=== PATIENT | female | born 1965 | race Caucasian/White ===

== ENCOUNTER 2021-03-12 17:12 | Inpatient (IN) ==
[2021-03-12 21:56] LABS: Basophils # (auto) 0.02 K/uL (0-0.2); Basophils % (auto) 0.1 %; Eosinophils # (auto) 0.03 K/uL (0-0.5); Eosinophils % (auto) 0.2 %; Hemoglobin 13.8 g/dL (12.0-16.0); Immature Granulocytes # (auto) 0.03 K/uL (0.00-0.02); Immature Granulocytes % (auto) 0.2 %; Lymphocytes # (auto) 1.77 K/uL (1.2-3.4); Lymphocytes % (auto) 13.2 %; Mean Corpuscular Hemoglobin 30.8 pg (25-34); Mean Corpuscular Hgb Conc 34.5 g/dL (32-36); Mean Corpuscular Volume 89.3 fL (80-100); Mean Platelet Volume 10.1 fL (7.4-10.4); Monocytes % (auto) 8.2 %; Neutrophils # (auto) 10.44 K/uL (1.4-6.5); Neutrophils % (auto) 78.1 %; Platelet Count 228 K/uL (130-400); RDW Standard Deviation 42.7 fL (36.4-46.3); Red Blood Count 4.48 M/uL (4.2-5.4); White Blood Count 13.39 K/uL (4.8-10.8)
[2021-03-12 22:12] LABS: Alanine Aminotransferase 21 U/L (12-78); Albumin Level 3.4 gm/dl (3.4-5.0); Aspartate Aminotransferase 15 U/L (15-37); BUN Creatinine Ratio 13.4 (10-20); Blood Urea Nitrogen 10 mg/dl (7-18); Calcium 9.5 mg/dl (8.5-10.1); Carbon Dioxide 26 mmol/L (21-32); Chloride 101 mmol/L (98-107); Creatinine Clr Calc Pharmacy 76.5 ml/min; Est GFR (African American) 100.9 ml/min; Est GFR (Non-African American) 87.1 ml/min; Glucose 100 mg/dl (70-99); Magnesium 2.2 mg/dl (1.8-2.4); Sodium 136 mmol/L (136-145)
[2021-03-12 22:16] LABS: Albumin Globulin Ratio 0.8 (0.9-2); Alkaline Phosphatase 59 U/L (45-117); Bilirubin,Total 0.8 mg/dl (0.2-1); Globulin 4.4 gm/dl (2.5-4.0); Total Protein 7.8 gm/dl (6.4-8.2); Troponin I < 0.015 ng/ml (0-0.045)
[2021-03-12 23:00] LABS: INR 1.1 (0.9-1.1); Partial Thromboplastin Ratio 1.2; Partial Thromboplastin Time 31.8 Seconds (21.0-31.0)
--- NOTE | 2021-03-12 23:04 | Emergency Department Note ---
History of Present Illness General Chief complaint: Foot Injury/Pain Stated complaint: CELLULITIS IN R FOOT, FEVER History of Present Illness Maximum Pain Intensity: 10 Sonali Singh is a 55 year old female with history of colon surgery and hernia repair who presents to the ED for evaluation of worsening pain, redness and swelling to her right great toe radiating into her mid foot over the past 3 days. Currently, she rates her discomfort as a 10/10 which worsens to palpation of the area. She has not yet attempted to take medications for her symptoms today. The patient states that she has a history of "toe fungus" for about a year and has experienced several episodes of swelling and discharge around her right great toe which she states she has treated on her own in the past after making a small incision around the area of her toenail to express the purulent fluid and taking natural medications. At the time of onset 3 days ago, the patient states that she did attempt to incise a small area around her right great toenail, however she was unable to express a significant amount of fluid and she did not experience relief of her symptoms as she had in the past. Since then, her pain has become worse and she has since developed redness and swelling tracking down to her mid foot. She also notes clear/yellow drainage around her toenail. She has attempted to take vitamin C without relief. Due to her ongoing symptoms, she presented to Urgent Care today but was then referred to the ED for further evaluation as there were concerns for cellulitis. The patient has not been taking her temperature at home but states that she was told that she had a fever at Urgent care. She does note that she had a "cold" last week but her symptoms have since resolved and she denies continued symptoms of congestion, cough, shortness of breath, chest pain, abdominal pain, nausea, vomiting or u rinary symptoms. She did note several episodes of diarrhea but believes that was from taking vitamin C. She denies additional complaints other than that of her right great toe/foot. Home Medications Medication Instructions Recorded Confirmed Type No Known Home Medications 03/13/21 03/13/21 History Allergies Allergy/AdvReac Type Severity Reaction Status Date / Time No Known Allergies Allergy Verified 03/13/21 01:03 Past Med/Surg History Medical History No significant past medical history Surgical History History of section History of colon surgery History of hernia repair Social History Smoking Status: Never smoker Hx Alcohol Use: No Hx Substance Use: No Feels Safe at Home: Yes Review of Systems A total of 10 systems reviewed and were otherwise negative Physical Exam Vital Signs Vital Signs - 24 hr 03/12/21 17:25 03/12/21 23:32 03/12/21 23:58 Temperature 36.9 C 37 C Temperature Source Temporal Artery Scan Oral Pulse Rate 81 86 Pulse Rate [Finger] 86 Respiratory Rate 19 Respiratory Effort / Characteristics Non-Labored Spontaneous Respiratory Depth Normal Blood Pressure 149/97 H Blood Pressure [Right Arm] 150/85 H Blood Pressure Mean 114 Blood Pressure Mean [Right Arm] 106 Blood Pressure Position [Right Arm] Sitting Pulse Oximetry 97 96 Oxygen Delivery Method Room Air Room Air Sepsis Recent Fever Within 48 Hours No Sepsis New/Unexplained Change in Mental Status N/A Sepsis Action Taken by Nursing No Action Required General: The patient is resting in bed, appears very uncomfortable due to right great toe/foot pain HEENT: Normocephalic, atraumatic, PERRL, EOMI, mucous membranes moist, oropharynx clear Neck: Trachea midline, no meningismus, no mid-line cervical tenderness Resp: Good inspiratory effort on room air, lung sounds clear bilaterally CV: Regular rate and rhythm, peripheral pulses palpated Abd: Soft, non-distended, non-tender Integumentary/MSK: With attention to the RLE, toenails 1-5 are yellow/blackened, thick and crumbling. There is significant erythema and edema to the right great toe tracking down to the right midfoot. Warm and extremely tender to palpation. No current drainage. ROM of the great toes is limited secondary to pain but able to move other toes. D/p pulse palpable, sensation intact. Moving ankle without apparent pain or difficulty. No additional wounds appreciated. Neuro: Awake, alert and oriented x 3, interacting and answering questions appropriately Course Administered Medications Discontinued Medications Vancomycin HCl 1,250 mg/ (Sodium Chloride) 525 mls @ 200 mls/hr IV NOW ONE Stop: 03/13/21 02:03 Last Admin: 03/13/21 01:21 Dose: 200 mls/hr Documented by: [id number] Piperacillin Sod/Tazobactam Sod (Zosyn) 4.5 gm in 120 mls @ 240 mls/hr IV NOW ONE Stop: 03/13/21 00:01 Last Infusion: 03/13/21 01:21 Dose: 0 mls/hr Documented by: [id number] Admin: 03/12/21 23:53 Dose: 240 mls/hr Documented by: [id number] Ibuprofen (Ibuprofen 600 Mg Tab) 600 mg PO NOW STA Stop: 03/12/21 23:20 Last Admin: 03/12/21 23:53 Dose: 600 mg Documented by: [id number] Medical Decision Making Differential Diagnosis Etiologies such as cellulitis, abscess, osteomyelitis, MRSA infection, DVT, necrotizing fasciitis, dermatitis, fracture, dislocation as well as others were entertained. Laboratory Data Result diagrams: 03/12/21 21:25 03/12/21 21:25 Lab Results 03/12/21 03/12/21 03/12/21 Range/Units 21:25 21:25 21:25 WBC 13.39 H (4.8-10.8) K/uL RBC 4.48 (4.2-5.4) M/uL Hgb 13.8 (12.0-16.0) g/dL Hct 40.0 (37-47) % MCV 89.3 (80-100) fL MCH 30.8 (25-34) pg MCHC 34.5 (32-36) g/dL RDW Std Deviation 42.7 (36.4-46.3) fL RDW Coeff of Homar 13.0 (11.5-14.5) % Plt Count 228 (130-400) K/uL MPV 10.1 (7.4-10.4) fL Immature Gran % (Auto) 0.2 % Neut % (Auto) 78.1 % Lymph % (Auto) 13.2 % [place] % (Auto) 8.2 % Eos % (Auto) 0.2 % Baso % (Auto) 0.1 % Neut # (Auto) 10.44 H (1.4-6.5) K/uL Lymph # (Auto) 1.77 (1.2-3.4) K/uL [place] # (Auto) 1.10 H (0.11-0.59) K/uL Eos # (Auto) 0.03 (0-0.5) K/uL Baso # (Auto) 0.02 (0-0.2) K/uL Immature Gran # (Auto) 0.03 H (0.00-0.02) K/uL ESR (0-30) mm/hr PT 11.0 (9.0-12.0) Seconds INR 1.1 (0.9-1.1) APTT 31.8 H (21.0-31.0) Seconds PTT Ratio 1.2 Sodium 136 (136-145) mmol/L Potassium 4.0 (3.5-5.1) mmol/L Chloride 101 (98-107) mmol/L Carbon Dioxide 26 (21-32) mmol/L Anion Gap 9.0 (3-11) BUN 10 (7-18) mg/dl Creatinine 0.76 (0.6-1.2) mg/dl Est Cr Clr Drug Dosing 76.5 ml/min Est GFR ( Amer) 100.9 ml/min Est GFR (Non-Af Amer) 87.1 ml/min BUN/Creatinine Ratio 13.4 (10-20) Glucose 100 H (70-99) mg/dl Lactate (0.4-2.0) mmol/L Calcium 9.5 (8.5-10.1) mg/dl Magnesium 2.2 (1.8-2.4) mg/dl Total Bilirubin 0.8 (0.2-1) mg/dl AST 15 (15-37) U/L ALT 21 (12-78) U/L Alkaline Phosphatase 59 (45-117) U/L Troponin I < 0.015 (0-0.045) ng/ml C-Reactive Protein 14.40 H (0-0.29) mg/dl Total Protein 7.8 (6.4-8.2) gm/dl Albumin 3.4 (3.4-5.0) gm/dl Globulin 4.4 H (2.5-4.0) gm/dl Albumin/Globulin Ratio 0.8 L (0.9-2) Urine Color Urine Appearance (Clear) Urine pH (4.5-7.5) Ur Specific [place] (1.000-1.030) Urine Protein (Negative) Urine Glucose (UA) (Negative) Urine Ketones (Negative) Urine Blood (Negative) Urine Nitrite (Negative) Urine Bilirubin (Negative) Urine Urobilinogen (Negative) Ur Leukocyte Esterase (Negative) Urine WBC (Auto) (0-5) /hpf Urine RBC (Auto) (0-4) /hpf U Hyaline Cast (Auto) (0-5) /lpf U Epithel Cells (Auto) (0-5) /lpf Urine Bacteria (Auto) (Negative) COVID-19 Eval Order SARS-CoV-2 (PCR) (Negative) 03/12/21 03/12/21 03/13/21 Range/Units 21:25 23:42 Unknown WBC (4.8-10.8) K/uL RBC (4.2-5.4) M/uL Hgb (12.0-16.0) g/dL Hct (37-47) % MCV (80-100) fL MCH (25-34) pg MCHC (32-36) g/dL RDW Std Deviation (36.4-46.3) fL RDW Coeff of Homar (11.5-14.5) % Plt Count (130-400) K/uL MPV (7.4-10.4) fL Immature Gran % (Auto) % Neut % (Auto) % Lymph % (Auto) % [place] % (Auto) % Eos % (Auto) % Baso % (Auto) % Neut # (Auto) (1.4-6.5) K/uL Lymph # (Auto) (1.2-3.4) K/uL [place] # (Auto) (0.11-0.59) K/uL Eos # (Auto) (0-0.5) K/uL Baso # (Auto) (0-0.2) K/uL Immature Gran # (Auto) (0.00-0.02) K/uL ESR 60 H (0-30) mm/hr PT (9.0-12.0) Seconds INR (0.9-1.1) APTT (21.0-31.0) Seconds PTT Ratio Sodium (136-145) mmol/L Potassium (3.5-5.1) mmol/L Chloride (98-107) mmol/L Carbon Dioxide (21-32) mmol/L Anion Gap (3-11) BUN (7-18) mg/dl Creatinine (0.6-1.2) mg/dl Est Cr Clr Drug Dosing ml/min Est GFR ( Amer) ml/min Est GFR (Non-Af Amer) ml/min BUN/Creatinine Ratio (10-20) Glucose (70-99) mg/dl Lactate 0.9 (0.4-2.0) mmol/L Calcium (8.5-10.1) mg/dl Magnesium (1.8-2.4) mg/dl Total Bilirubin (0.2-1) mg/dl AST (15-37) U/L ALT (12-78) U/L Alkaline Phosphatase (45-117) U/L Troponin I (0-0.045) ng/ml C-Reactive Protein (0-0.29) mg/dl Total Protein (6.4-8.2) gm/dl Albumin (3.4-5.0) gm/dl Globulin (2.5-4.0) gm/dl Albumin/Globulin Ratio (0.9-2) Urine Color Urine Appearance (Clear) Urine pH (4.5-7.5) Ur Specific [place] (1.000-1.030) Urine Protein (Negative) Urine Glucose (UA) (Negative) Urine Ketones (Negative) Urine Blood (Negative) Urine Nitrite (Negative) Urine Bilirubin (Negative) Urine Urobilinogen (Negative) Ur Leukocyte Esterase (Negative) Urine WBC (Auto) (0-5) /hpf Urine RBC (Auto) (0-4) /hpf U Hyaline Cast (Auto) (0-5) /lpf U Epithel Cells (Auto) (0-5) /lpf Urine Bacteria (Auto) (Negative) COVID-19 Eval Order Covid19 at [facility] SARS-CoV-2 (PCR) (Negative) 03/13/21 03/13/21 Range/Units Unknown Unknown WBC (4.8-10.8) K/uL RBC (4.2-5.4) M/uL Hgb (12.0-16.0) g/dL Hct (37-47) % MCV (80-100) fL MCH (25-34) pg MCHC (32-36) g/dL RDW Std Deviation (36.4-46.3) fL RDW Coeff of Homar (11.5-14.5) % Plt Count (130-400) K/uL MPV (7.4-10.4) fL Immature Gran % (Auto) % Neut % (Auto) % Lymph % (Auto) % [place] % (Auto) % Eos % (Auto) % Baso % (Auto) % Neut # (Auto) (1.4-6.5) K/uL Lymph # (Auto) (1.2-3.4) K/uL [place] # (Auto) (0.11-0.59) K/uL Eos # (Auto) (0-0.5) K/uL Baso # (Auto) (0-0.2) K/uL Immature Gran # (Auto) (0.00-0.02) K/uL ESR (0-30) mm/hr PT (9.0-12.0) Seconds INR (0.9-1.1) APTT (21.0-31.0) Seconds PTT Ratio Sodium (136-145) mmol/L Potassium (3.5-5.1) mmol/L Chloride (98-107) mmol/L Carbon Dioxide (21-32) mmol/L Anion Gap (3-11) BUN (7-18) mg/dl Creatinine (0.6-1.2) mg/dl Est Cr Clr Drug Dosing ml/min Est GFR ( Amer) ml/min Est GFR (Non-Af Amer) ml/min BUN/Creatinine Ratio (10-20) Glucose (70-99) mg/dl Lactate (0.4-2.0) mmol/L Calcium (8.5-10.1) mg/dl Magnesium (1.8-2.4) mg/dl Total Bilirubin (0.2-1) mg/dl AST (15-37) U/L ALT (12-78) U/L Alkaline Phosphatase (45-117) U/L Troponin I (0-0.045) ng/ml C-Reactive Protein (0-0.29) mg/dl Total Protein (6.4-8.2) gm/dl Albumin (3.4-5.0) gm/dl Globulin (2.5-4.0) gm/dl Albumin/Globulin Ratio (0.9-2) Urine Color Yellow Urine Appearance Clear (Clear) Urine pH 5.0 (4.5-7.5) Ur Specific [place] 1.009 (1.000-1.030) Urine Protein Negative (Negative) Urine Glucose (UA) Negative (Negative) Urine Ketones 2+ H (Negative) Urine Blood 2+ H (Negative) Urine Nitrite Negative (Negative) Urine Bilirubin Negative (Negative) Urine Urobilinogen Negative (Negative) Ur Leukocyte Esterase 2+ H (Negative) Urine WBC (Auto) 10-30 H (0-5) /hpf Urine RBC (Auto) 0-4 (0-4) /hpf U Hyaline Cast (Auto) 0 (0-5) /lpf U Epithel Cells (Auto) 20-30 H (0-5) /lpf Urine Bacteria (Auto) Negative (Negative) COVID-19 Eval Order SARS-CoV-2 (PCR) NEGATIVE (Negative) Imaging Data My Impression: Per my view, right foot x-ray is without apparent acute fracture or dislocation. There does appear to be soft tissue swelling around the great toe. No obvious signs of osteomyelitis. Radiologist's Impression: Final Radiologist Impression of the right foot is pending. MDM Narrative Physical exam and history were performed. Nursing notes, EMR, and medication list were personally reviewed. Patient presented to the emergency department for evaluation of worsening pain, redness and swelling to her right great toe radiating down to her midfoot over the past 3 days. She did attempt to incise a small area around her great toenail but was unsuccessful in draining a significant amount of fluid. Since then her pain has continued to worsen despite attempts of taking vitamin C at home. Due to her ongoing symptoms she visited urgent care today but was then referred to the emergency department for further evaluation as there were concerns for cellulitis. The patient had not been taking her temperature at home, however she was told that she had a fever while urgent care today. Upon arrival she was afebrile with a temperature of 36.9C. She did note having a recent cold but denied continued symptoms of congestion, cough, shortness of breath, abdominal pain, nausea, vomiting or urinary symptoms. She did note diarrhea but thought this may have been from taking vitamin C. On exam, with attention to the RLE, toenails 1-5 were yellow/blackened, thick and crumbling. There was significant erythema and edema to the right great toe tracking down to the right midfoot. Warm and extremely tender to palpation. No apparent drainage. ROM of the great toes was limited secondary to pain but able to move other toes. D/p pulse palpable, sensation intact. Able to move ankle without apparent pain or difficulty. No additional wounds appreciated. Using shared medical decision making, the patient agreed to obtain x-rays to assess for acute bony abnormality. She also agreed for lab testing to assess for acute infectious process including CBC, CMP, lactate, CRP and ESR. The patient was offered pain medication and opted for a dose of ibuprofen, which she was given. IV access was established, labs were obtained and reviewed by myself as above. Of note, she did have leukocytosis with a white blood cell count of 13.39 with elevated neutrophils and monocytes. She also had an ESR of 60 and a CRP of 14.4 which are also indicative of inflammation and supportive of infectious process. X-ray of the right foot was obtained and reviewed by myself and my attending as above. There did not appear to be any acute fracture, dislocation or bony abnormality indicative of osteomyelitis. Final radiologist review is pending and will be reviewed in the morning. I discussed the results of the above lab findings and my interpretation of the x-rays with Dr. Renae and the patient at bedside. We discussed that these findings are consistent with acute cellulitis, and she would benefit from IV antibiotics for treatment of the infection to which she agreed. Vancomycin and Zosyn were ordered for coverage at this time. The patient was questioning if her toenail should be removed, however I do believe that she would benefit from treatment with antibiotics before any procedure should be done on her toenail to prevent the infection from becoming worse. The patient's case was discussed with Dr. Shi of the [facility]. She agreed to evaluate the patient. The patient verbalized her understanding and agreement with the treatment plan as above.. The chart was completed utilizing [employer] Speech Voice Recognition Software. Grammatical errors, random word insertions, pronoun errors, and incomplete sentences are an occasional consequence of this system due to software limitations, ambient noise, and hardware issues. Any formal questions or concerns about the content, text, or information contained within the body of this dictation should be directly addressed to the provider for clarification. Impression & Plan Cellulitis of great toe, right, Cellulitis of foot, right, Toenail fungus Discharge Plan Visit Data Chief Complaint: Foot Injury/Pain Stated Complaint: CELLULITIS IN R FOOT, FEVER ED Provider: Jakub Renae ED Midlevel Provider: Radha Dalton Discharge Problem: Cellulitis of great toe, right, Cellulitis of foot, right, Toenail fungus Forms Stand Alone Forms: [facility] [employer] Prescriptions Prescriptions: No Action No Known Home Medications RF: 0 Referrals Referrals: PCP,NO [Physician] -
[2021-03-12] MEDS ORDERED: IBUPROFEN 600 MG TAB PO STA (23:19)
[2021-03-12] MEDS ORDERED: VANCOMYCIN CONSULT ACTIVE PRN (23:26)
[2021-03-12] MEDS ORDERED: VANCOMYCIN HCL 1,250 MG in SODIUM CHLORIDE 0.9% 500 ML IV ONE (23:26)
[2021-03-12] MEDS ORDERED: PIPERACILL/TAZOBAC CONSULT ACTIVE PRN (23:32)
[2021-03-12] MEDS ORDERED: PIPERACILLIN/TAZOBACTAM 4.5 GM/120 ML BAG IV ONE (23:32)
--- NOTE | 2021-03-13 00:48 | History & Physical Report ---
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 Patient with longstanding history of what she believes to be a fungal infection of the toe - daily serous drainage which stopped 2 days ago. No trauma, foreign body. Xray with no obvious osteomyelitis. Ddx to include infection vs gout -Colchicine 1.2mg po x 1 then 0.6mg po BID -Vancomycin -Monitor redness daily -Consider Ortho consultation for aspiration if symptoms fail to improve -Check Uric Acid -Tylenol PRN -Oxycodone PRN -Morphine PRN - 1mg IV q 4 hours (2) Ankle pain: Plan: Patient states she had swelling and tenderness of her left ankle. No trauma -Check x-ray History of Present Illness Chief Complaint: right great toe pain Primary Care Provider: Jakub Singh is a 55yo female presenting with severe pain and swelling in the right great toe. Patient states that she has chronic drainage from the right great toe, typically clear fluid, non-purulent. Two days ago her toe began to swell more and become red and tender. She noted that there was no drainage. She tried to squeeze it to relieve some pressure but was unsuccessful. She was seen in Urgent Care for this complaint today and was subsequently sent to the ER. She denies fever, chills, malaise, nausea, vomiting, diarrhea, constipation. She has had poor appetite She notes joint pains and swelling on occasion. States she had painful swelling in her left ankle 2 months ago. She took antibiotics with little improvement. Allergies Allergy/AdvReac Type Severity Reaction Status Date / Time No Known Allergies Allergy Verified 03/13/21 01:03 Home Medications Medication Instructions Recorded Confirmed Type No Known Home Medications 03/13/21 03/13/21 History Past Med/Surg History Medical History (Updated 03/13/21 @ 01:52 by Velvet Mike DO) No significant past medical history Surgical History (Updated 03/13/21 @ 01:48 by Velvet Mike DO) History of section History of colon surgery History of hernia repair Social History (Updated 03/13/21 @ 01:49 by Velvet Mike DO) Smoking Status: Never smoker Hx Alcohol Use: No Hx Substance Use: No Feels Safe at Home: Yes Review of Systems Review of Systems: All systems reviewed & are unremarkable except as noted in HPI & below Physical Exam Physical Exam: General: patient resting comfortably, NAD, non-toxic in appearance, AA&O x 4 Skin: warm, dry, intact, no rashes or lesions HEENT: NC/AT, PERRL, EOMI, anicteric sclera, conjunctiva without injection, external ear normal to inspection and nontender, nares patent, moist mucus membranes, dentition intact, no oropharyngeal lesions, neck supple, trachea midline, no LAD, no thyromegaly, no JVD Heart: +S1/S2, regular, no m/r/g Lungs: equal air entry bilaterally, no rales/rhonchi/wheezes Abd: +BS, soft, NT/ND, no masses/organomegaly/ascites Ext: warm, 2+ pulses in UE/LE bilaterally, right 1st toe swollen, tender to palpation, warm, redness on dorsum of foot Neuro: nonfocal, patient AA&O x 4, speech intact, no facial droop, moving all extremities on command with equal strength 5/5 Results & Data Results & Data ([facility]) Vital Signs (Past 12 Hours) Vital Signs Temp Pulse Pulse Resp BP BP Pulse Ox 03/12/21 23:58 37 C 03/12/21 23:32 86 86 150/85 H 96 03/12/21 17:25 36.9 C 81 19 149/97 H 97 Laboratory Results Laboratory Results WBC 13.39 K/uL (4.8-10.8) H 03/12/21 21:25 RBC 4.48 M/uL (4.2-5.4) 03/12/21 21:25 Hgb 13.8 g/dL (12.0-16.0) 03/12/21 21:25 Hct 40.0 % (37-47) 03/12/21 21:25 MCV 89.3 fL (80-100) 03/12/21 21:25 MCH 30.8 pg (25-34) 03/12/21 21:25 MCHC 34.5 g/dL (32-36) 03/12/21 21:25 RDW Std Deviation 42.7 fL (36.4-46.3) 03/12/21 21:25 RDW Coeff of Homar 13.0 % (11.5-14.5) 03/12/21: Plt Count 228 K/uL (130-400) 03/12/21 21: MPV 10.1 fL (7.4-10.4) 03/12/21 21: Immature Gran % (Auto) 0.2 % 03/12/21: Neut % (Auto) 78.1 % 03/12/21: Lymph % (Auto) 13.2 % 03/12/21: [place] % (Auto) 8.2 % 03/12/21: Eos % (Auto) 0.2 % 03/12/21: Baso % (Auto) 0.1 % 03/12/21: Neut # (Auto) 10.44 K/uL (1.4-6.5) H 03/12/21 21: Lymph # (Auto) 1.77 K/uL (1.2-3.4) 03/12/21 21: [place] # (Auto) 1.10 K/uL (0.11-0.59) H 03/12/21 21:25 Eos # (Auto) 0.03 K/uL (0-0.5) 03/12/21: Baso # (Auto) 0.02 K/uL (0-0.2) 03/12/21: Immature Gran # (Auto) 0.03 K/uL (0.00-0.02) H 03/12/21: ESR 60 mm/hr (0-30) H 03/12/21 21: PT 11.0 Seconds (9.0-12.0) 03/12/21: INR 1.1 (0.9-1.1) 03/12/21: APTT 31.8 Seconds (21.0-31.0) H 03/12/21: PTT Ratio 1.2 03/12/21 21:25 Sodium 136 mmol/L (136-145) 03/12/21 21:25 Potassium 4.0 mmol/L (3.5-5.1) 03/12/21: Chloride 101 mmol/L (98-107) 03/12/21 21:25 Carbon Dioxide 26 mmol/L (21-32) 03/12/21 21:25 Anion Gap 9.0 (3-11) 03/12/21 21:25 BUN 10 mg/dl (7-18) 03/12/21 21:25 Creatinine 0.76 mg/dl (0.6-1.2) 03/12/21 21:25 Est Cr Clr Drug Dosing 76.5 ml/min 03/12/21 21:25 Est GFR ( Amer) 100.9 ml/min 03/12/21 21:25 Est GFR (Non-Af Amer) 87.1 ml/min 03/12/21 21:25 BUN/Creatinine Ratio 13.4 (10-20) 03/12/21 21:25 Glucose 100 mg/dl (70-99) H 03/12/21 21:25 Lactate 0.9 mmol/L (0.4-2.0) 03/12/21 23:42 Calcium 9.5 mg/dl (8.5-10.1) 03/12/21 21:25 Magnesium 2.2 mg/dl (1.8-2.4) 03/12/21 21:25 Total Bilirubin 0.8 mg/dl (0.2-1) 03/12/21 21:25 AST 15 U/L (15-37) 03/12/21 21:25 ALT 21 U/L (12-78) 03/12/21 21:25 Alkaline Phosphatase 59 U/L (45-117) 03/12/21 21:25 Troponin I < 0.015 ng/ml (0-0.045) 03/12/21 21:25 C-Reactive Protein 14.40 mg/dl (0-0.29) H 03/12/21 21:25 Total Protein 7.8 gm/dl (6.4-8.2) 03/12/21 21:25 Albumin 3.4 gm/dl (3.4-5.0) 03/12/21 21:25 Globulin 4.4 gm/dl (2.5-4.0) H 03/12/21 21:25 Albumin/Globulin Ratio 0.8 (0.9-2) L 03/12/21 21:25 Urine Color Yellow 03/13/21 Unknown Urine Appearance Clear (Clear) 03/13/21 Unknown Urine pH 5.0 (4.5-7.5) 03/13/21 Unknown Ur Specific [place] 1.009 (1.000-1.030) 03/13/21 Unknown Urine Protein Negative (Negative) 03/13/21 Unknown Urine Glucose (UA) Negative (Negative) 03/13/21 Unknown Urine Ketones 2+ (Negative) H 03/13/21 Unknown Urine Blood 2+ (Negative) H 03/13/21 Unknown Urine Nitrite Negative (Negative) 03/13/21 Unknown Urine Bilirubin Negative (Negative) 03/13/21 Unknown Urine Urobilinogen Negative (Negative) 03/13/21 Unknown Ur Leukocyte Esterase 2+ (Negative) H 03/13/21 Unknown Urine WBC (Auto) 10-30 /hpf (0-5) H 03/13/21 Unknown Urine RBC (Auto) 0-4 /hpf (0-4) 03/13/21 Unknown U Hyaline Cast (Auto) 0 /lpf (0-5) 03/13/21 Unknown U Epithel Cells (Auto) 20-30 /lpf (0-5) H 03/13/21 Unknown Urine Bacteria (Auto) Negative (Negative) 03/13/21 Unknown COVID-19 Eval Order Covid19 at [facility] 03/13/21 Unknown SARS-CoV-2 (PCR) NEGATIVE (Negative) 03/13/21 Unknown Code Status & VTE Plan VTE Prophylaxis Plan VTE Prophylaxis will be ordered: Yes PG Care Time/CCT Total # of Minutes Spent Total Time Spent with Patient: Total time spent is greater than 50% in coordination of care (as documented) at patient's floor/unit and/or counseling patient: Coding Level of Care Code INT OBSERVATION CARE 50M LVL 2 Diagnoses Toe swelling M79.89 Ankle pain M25.579
[2021-03-13 01:28] LABS: Appearance Urine Clear (Clear); Bacteria Urine Automated Negative (Negative); Bilirubin Urine Negative (Negative); Blood Urine 2+ (Negative); Cast Urine Automated 0 /lpf (0-5); Color Urine Yellow; Epithelial Cell Urine Auto 20-30 /lpf (0-5); Glucose Urine UA Negative (Negative); Ketones Urine 2+ (Negative); Leukocyte Esterase Urine 2+ (Negative); Nitrite Urine Negative (Negative); Protein Urine Negative (Negative); RBC Urine Automated 0-4 /hpf (0-4); Specific Gravity Urine 1.009 (1.000-1.030); Urobilinogen Urine Negative (Negative)
[2021-03-13] MEDS ORDERED: oxyCODONE HCL IR 5 MG TAB (IMMEDIATE RELEASE) PO PRN (03:32)
[2021-03-13] MEDS ORDERED: MoRPHine SULFATE 2 MG/ML CARP IV PRN (03:32)
[2021-03-13] MEDS ORDERED: DOCUSATE SODIUM 100 MG CAP PO PRN (03:32)
[2021-03-13] MEDS ORDERED: VANCOMYCIN CONSULT ACTIVE PRN (03:32)
[2021-03-13] MEDS ORDERED: ACETAMINOPHEN 325 MG TAB ONE (03:36)
[2021-03-13] MEDS ORDERED: COLCHICINE 0.6 MG TAB PO ONE (03:45)
[2021-03-13 03:46] LABS: Uric Acid 3.2 mg/dl (2.6-7.2)
--- NOTE | 2021-03-13 06:52 | Pharmacy Report ---
Pharmacy Abx Initial Consult - Date of Service March 13, 2021 - Pharmacy Dosing Scope Date of Consult: 03/12/21 Consultation requested by: Dr. Velvet Mike Pharmacy is consulted to continue Vancomycin IV dosing therapy, order appropriate labs and adjust drug dose/frequency. - Subjective The patient is a 55 year old F admitted on 03/13/21 00:47 with an infection in her (R) great toe. There was some question of gout vs infection. The patient states she has had recurrent problems with said toe and recently squeezed some drainage from the area. The Ed provider loaded her with Vancomycin IV and Dr. Mike continued via pharmacy consult on admission. Of note; patient is Joshua. - Objective Height: 5 ft 6 in Weight: 59.3 kg Vital Signs (Past 12hrs): Vital Signs Temp Pulse Pulse Resp BP Pulse Ox 03/13/21 03:40 36.9 C 74 18 141/91 H 96 03/13/21 03:10 131/75 03/12/21 23:58 37 C 03/12/21 23:32 86 86 150/85 H 96 Lab Results (24hrs): Laboratory Tests (24 Hours) 03/12/21 03/12/21 03/12/21 21:25 21:25 21:25 WBC 13.39 H Neut # (Auto) 10.44 H ESR 60 H Creatinine 0.76 Est Cr Clr Drug Dosing 76.5 C-Reactive Protein 14.40 H Micro Results: 03/13/21 Unknown Urine Culture - Pending Urine,Clean Catch 03/12/21 21:25 Aerobic Blood Culture - Pending Blood Anaerobic Blood Culture - Pending 03/12/21 21:30 Aerobic Blood Culture - Pending Blood Anaerobic Blood Culture - Pending - Assessment & Plan Assessment 55 year old F with (R) great toe infection Plan Vancomycin IV * Estimated PK Parameters: Vd 0.70L/kg, Jamel 0.068 hr-1, t1/2~10 hr * Loading dose: 1250 mg (21 mg/kg) * Maintenance dose: 750 mg IV (12.6 mg/kg) every 12 hours * Goal AUC: 400-600 * Trough level ordered prior to 2200 dose on * AUC dosing via [facility] Pharmacy will continue to follow and will adjust dose/frequency as necessary. Thank you.
--- NOTE | 2021-03-13 07:10 | XRay Report ---
XR ankle LT min 3V routine HISTORY: 55 years-old Female ankle pain and swelling acute pain and swelling of the left foot and an kle COMPARISON: Foot radiographs of same day TECHNIQUE: 3 views of the left ankle FINDINGS: Moderate circumferential soft tissue swelling. Moderate multifocal osteoarthritis. Corticated ossific ations are noted adjacent to the distal fibula. Pes planus with spurring of the calcaneus. No acute f racture, dislocation or osseous erosion identified. IMPRESSION: Soft tissue swelling without acute fracture or osseous erosion identified. ACT 112: Negative or not required by law. The above report was generated using voice recognition software. It may contain grammatical, syntax o r spelling errors. Electronically signed by: Anibal Bennett M.D. 03/13/2021 7:08 AM
--- NOTE | 2021-03-13 08:04 | XRay Report ---
XR foot RT min 3V routine CLINICAL HISTORY: cellulitis, concern for osteomyelitis. Right foot swelling. COMPARISON STUDY: None. FINDINGS: No fracture or dislocation within the right foot. Degenerative changes noted at the tarsome tatarsal joint and interphalangeal joints of the toes. There is soft tissue swelling within the media l aspect of the right forefoot and right first toe. No bony destruction to suggest osteomyelitis. No radiopaque foreign bodies. IMPRESSION: Soft tissue swelling within the medial aspect of the right forefoot and right first toe. No underlying bony destruction to suggest an osteomyelitis. ACT 112: Negative or not required by law. Electronically signed by: Messi Hoskins M.D. 03/13/2021 8:02 AM
[2021-03-13] MEDS: ACETAMINOPHEN 325 MG TAB PO PRN ×4 (09:09→22:25)
[2021-03-13] MEDS: COLCHICINE 0.6 MG TAB PO SCH ×2 (09:09→20:56)
[2021-03-13] MEDS ORDERED: VANCOMYCIN HCL 750 MG in SODIUM CHLORIDE 0.9% 250 ML IV SCH (10:00)
[2021-03-13 10:27] LABS: Lyme Ab IgG w/WB Rflx Negative (Negative); Lyme Ab IgM w/WB Rflx Negative (Negative)
--- NOTE | 2021-03-13 13:06 | Hospitalist Progress Note ---
Date of Service March 13, 2021 Assessment & Plan (1) Toe swelling: Plan: 55yo Spirit[employer] female with no significant past medical history (hx colon surgery/hernia repair) presenting with severe pain, swelling, warmth of right great toe. Patient with longstanding history of what she believes to be a fungal infection of the toe - daily serous drainage which stopped 2 days ago. No trauma, foreign body. Xray with no obvious osteomyelitis. Ddx to include infection vs gout Colchicine 1.2mg po x 1 then 0.6mg po BID --> States improvement in pain however uric acid wnl 3.2 and likely could d/c this WBC elevated on admission 13.3k CRP 14.4, ESR 60 Urine and blood cultures pending (reports "maybe fever at Urgent care" Vancomycin -- no risk factors and will deescalate to Rocephin Remains afebrile Monitor redness daily -- asked to gabrielle today for RN Consider Ortho consultation for aspiration if symptoms fail to improve --> was to see podiatry and given fungal appearance/possible need for removal of nail will consult podiatry CT angio of L foot to evaluation for blue toe/small emboli? Distal pulses palpable but toe very swollen/red. --> pending imaging consider ECHO? Very very faint systolic mumur on exam but could be some vs ?MR Pain control -Tylenol PRN -Oxycodone PRN -Morphine PRN - 1mg IV q 4 hours Start Lovenox SQ for DVT prophylaxis (2) Ankle pain: Patient states she had swelling and tenderness of her left ankle. No trauma -Check x-ray --> soft tissue swelling without acute fracture or osseous erosion identified Not red on exam today and pain reported controlled CTA angio foot as above (2) Ankle pain: (3) Cellulitis of great toe, right: (4) Toenail fungus: Admission and Anticipated Discharge Date Admission Date: March 13, 2021 Supervising Physician Co-Signing Physician Notes Attending Attestation - chart reviewed, care plan d/w BRITTANEY Smith. I agree w/ the ellison components of her documentation. Julio Wills MD Subjective BRIDGE NOTE: ADMIT AFTER MIDNIGHT Patient evaluated this afternoon. Pain controlled with ordered medications. States has been draining daily clear for about six months but once stopped draining became swollen and redness that spread to foot. Erythema about the same she things but not worse. No fever but states "Dr Rodriguez thought I had a fever" at Urgent care. States has been taking Vitamin C and natural supplemental "Factor 5" without improvement. Discussed concerns for small emboli vs area of abscess that would need drained. She states was to see podiatry to have nail removed but it became red and she wasn't feeling well/wanting to leave house and did not go to appointment. She believes once nail removed the pressure would improve and feel much better. Review of Systems Review of Systems: All systems reviewed & are unremarkable except as noted in HPI & below Physical Exam Physical Exam: General: patient resting comfortably, NAD, non-toxic in appearance, AA&O x 4 Skin: warm, dry, intact, no rashes or lesions HEENT: NC/AT, PERRL, EOMI, anicteric sclera, conjunctiva without injection, external ear normal to inspection and nontender, nares patent, moist mucus membranes, dentition intact, no oropharyngeal lesions, neck supple, trachea midline, no LAD, no thyromegaly, no JVD Heart: +S1/S2, regular, no m/r/g Lungs: equal air entry bilaterally, no rales/rhonchi/wheezes Abd: +BS, soft, NT/ND, no masses/organomegaly/ascites Ext: warm, 2+ pulses in UE/LE bilaterally, right 1st toe swollen, tender to palpation, warm, redness on dorsum of foot to metatarsals. pulses palpable. black toenail (previously cut by patient) to 1st toe without expressible material Neuro: nonfocal, patient AA&O x 4, speech intact, no facial droop, moving all extremities on command with equal strength 5/5 Results & Data Results & Data ([facility]) Vital Signs (Past 12 Hours) Vital Signs Temp Pulse Resp BP BP Pulse Ox 03/13/21 07:05 36.8 C 69 16 135/83 97 03/13/21 03:40 36.9 C 74 18 141/91 H 96 03/13/21 03:10 131/75 Laboratory Results 03/13/21 03/13/21 03/13/21 Range/Units Unknown Unknown Unknown WBC (4.8-10.8) K/uL RBC (4.2-5.4) M/uL Hgb (12.0-16.0) g/dL Hct (37-47) % MCV (80-100) fL MCH (25-34) pg MCHC (32-36) g/dL RDW Std Deviation (36.4-46.3) fL RDW Coeff of Homar (11.5-14.5) % Plt Count (130-400) K/uL MPV (7.4-10.4) fL Immature Gran % (Auto) % Neut % (Auto) % Lymph % (Auto) % [place] % (Auto) % Eos % (Auto) % Baso % (Auto) % Neut # (Auto) (1.4-6.5) K/uL Lymph # (Auto) (1.2-3.4) K/uL [place] # (Auto) (0.11-0.59) K/uL Eos # (Auto) (0-0.5) K/uL Baso # (Auto) (0-0.2) K/uL Immature Gran # (Auto) (0.00-0.02) K/uL ESR (0-30) mm/hr PT (9.0-12.0) Seconds INR (0.9-1.1) APTT (21.0-31.0) Seconds PTT Ratio Sodium (136-145) mmol/L Potassium (3.5-5.1) mmol/L Chloride (98-107) mmol/L Carbon Dioxide (21-32) mmol/L Anion Gap (3-11) BUN (7-18) mg/dl Creatinine (0.6-1.2) mg/dl Est Cr Clr Drug Dosing ml/min Est GFR ( Amer) ml/min Est GFR (Non-Af Amer) ml/min BUN/Creatinine Ratio (10-20) Glucose (70-99) mg/dl Lactate (0.4-2.0) mmol/L Uric Acid (2.6-7.2) mg/dl Calcium (8.5-10.1) mg/dl Magnesium (1.8-2.4) mg/dl Total Bilirubin (0.2-1) mg/dl AST (15-37) U/L ALT (12-78) U/L Alkaline Phosphatase (45-117) U/L Total Creatine Kinase (26-192) U/L Troponin I (0-0.045) ng/ml C-Reactive Protein (0-0.29) mg/dl Total Protein (6.4-8.2) gm/dl Albumin (3.4-5.0) gm/dl Globulin (2.5-4.0) gm/dl Albumin/Globulin Ratio (0.9-2) Urine Color Yellow Urine Appearance Clear (Clear) Urine pH 5.0 (4.5-7.5) Ur Specific [place] 1.009 (1.000-1.030) Urine Protein Negative (Negative) Urine Glucose (UA) Negative (Negative) Urine Ketones 2+ H (Negative) Urine Blood 2+ H (Negative) Urine Nitrite Negative (Negative) Urine Bilirubin Negative (Negative) Urine Urobilinogen Negative (Negative) Ur Leukocyte Esterase 2+ H (Negative) Urine WBC (Auto) 10-30 H (0-5) /hpf Urine RBC (Auto) 0-4 (0-4) /hpf U Hyaline Cast (Auto) 0 (0-5) /lpf U Epithel Cells (Auto) 20-30 H (0-5) /lpf Urine Bacteria (Auto) Negative (Negative) Lyme Disease IgG Ab (Negative) Lyme Disease IgM Ab (Negative) COVID-19 Eval Order Covid19 at [facility] SARS-CoV-2 (PCR) NEGATIVE (Negative) 03/13/21 03/13/21 03/12/21 Range/Units 09:21 09:21 23:42 WBC (4.8-10.8) K/uL RBC (4.2-5.4) M/uL Hgb (12.0-16.0) g/dL Hct (37-47) % MCV (80-100) fL MCH (25-34) pg MCHC (32-36) g/dL RDW Std Deviation (36.4-46.3) fL RDW Coeff of Homar (11.5-14.5) % Plt Count (130-400) K/uL MPV (7.4-10.4) fL Immature Gran % (Auto) % Neut % (Auto) % Lymph % (Auto) % [place] % (Auto) % Eos % (Auto) % Baso % (Auto) % Neut # (Auto) (1.4-6.5) K/uL Lymph # (Auto) (1.2-3.4) K/uL [place] # (Auto) (0.11-0.59) K/uL Eos # (Auto) (0-0.5) K/uL Baso # (Auto) (0-0.2) K/uL Immature Gran # (Auto) (0.00-0.02) K/uL ESR (0-30) mm/hr PT (9.0-12.0) Seconds INR (0.9-1.1) APTT (21.0-31.0) Seconds PTT Ratio Sodium (136-145) mmol/L Potassium (3.5-5.1) mmol/L Chloride (98-107) mmol/L Carbon Dioxide (21-32) mmol/L Anion Gap (3-11) BUN (7-18) mg/dl Creatinine (0.6-1.2) mg/dl Est Cr Clr Drug Dosing ml/min Est GFR ( Amer) ml/min Est GFR (Non-Af Amer) ml/min BUN/Creatinine Ratio (10-20) Glucose (70-99) mg/dl Lactate 0.9 (0.4-2.0) mmol/L Uric Acid (2.6-7.2) mg/dl Calcium (8.5-10.1) mg/dl Magnesium (1.8-2.4) mg/dl Total Bilirubin (0.2-1) mg/dl AST (15-37) U/L ALT (12-78) U/L Alkaline Phosphatase (45-117) U/L Total Creatine Kinase 67 (26-192) U/L Troponin I (0-0.045) ng/ml C-Reactive Protein (0-0.29) mg/dl Total Protein (6.4-8.2) gm/dl Albumin (3.4-5.0) gm/dl Globulin (2.5-4.0) gm/dl Albumin/Globulin Ratio (0.9-2) Urine Color Urine Appearance (Clear) Urine pH (4.5-7.5) Ur Specific [place] (1.000-1.030) Urine Protein (Negative) Urine Glucose (UA) (Negative) Urine Ketones (Negative) Urine Blood (Negative) Urine Nitrite (Negative) Urine Bilirubin (Negative) Urine Urobilinogen (Negative) Ur Leukocyte Esterase (Negative) Urine WBC (Auto) (0-5) /hpf Urine RBC (Auto) (0-4) /hpf U Hyaline Cast (Auto) (0-5) /lpf U Epithel Cells (Auto) (0-5) /lpf Urine Bacteria (Auto) (Negative) Lyme Disease IgG Ab Negative (Negative) Lyme Disease IgM Ab Negative (Negative) COVID-19 Eval Order SARS-CoV-2 (PCR) (Negative) 03/12/21 03/12/21 03/12/21 Range/Units 21:25 21:25 21:25 WBC (4.8-10.8) K/uL RBC (4.2-5.4) M/uL Hgb (12.0-16.0) g/dL Hct (37-47) % MCV (80-100) fL MCH (25-34) pg MCHC (32-36) g/dL RDW Std Deviation (36.4-46.3) fL RDW Coeff of Homar (11.5-14.5) % Plt Count (130-400) K/uL MPV (7.4-10.4) fL Immature Gran % (Auto) % Neut % (Auto) % Lymph % (Auto) % [place] % (Auto) % Eos % (Auto) % Baso % (Auto) % Neut # (Auto) (1.4-6.5) K/uL Lymph # (Auto) (1.2-3.4) K/uL [place] # (Auto) (0.11-0.59) K/uL Eos # (Auto) (0-0.5) K/uL Baso # (Auto) (0-0.2) K/uL Immature Gran # (Auto) (0.00-0.02) K/uL ESR 60 H (0-30) mm/hr PT 11.0 (9.0-12.0) Seconds INR 1.1 (0.9-1.1) APTT 31.8 H (21.0-31.0) Seconds PTT Ratio 1.2 Sodium 136 (136-145) mmol/L Potassium 4.0 (3.5-5.1) mmol/L Chloride 101 (98-107) mmol/L Carbon Dioxide 26 (21-32) mmol/L Anion Gap 9.0 (3-11) BUN 10 (7-18) mg/dl Creatinine 0.76 (0.6-1.2) mg/dl Est Cr Clr Drug Dosing 76.5 ml/min Est GFR ( Amer) 100.9 ml/min Est GFR (Non-Af Amer) 87.1 ml/min BUN/Creatinine Ratio 13.4 (10-20) Glucose 100 H (70-99) mg/dl Lactate (0.4-2.0) mmol/L Uric Acid 3.2 (2.6-7.2) mg/dl Calcium 9.5 (8.5-10.1) mg/dl Magnesium 2.2 (1.8-2.4) mg/dl Total Bilirubin 0.8 (0.2-1) mg/dl AST 15 (15-37) U/L ALT 21 (12-78) U/L Alkaline Phosphatase 59 (45-117) U/L Total Creatine Kinase (26-192) U/L Troponin I < 0.015 (0-0.045) ng/ml C-Reactive Protein 14.40 H (0-0.29) mg/dl Total Protein 7.8 (6.4-8.2) gm/dl Albumin 3.4 (3.4-5.0) gm/dl Globulin 4.4 H (2.5-4.0) gm/dl Albumin/Globulin Ratio 0.8 L (0.9-2) Urine Color Urine Appearance (Clear) Urine pH (4.5-7.5) Ur Specific [place] (1.000-1.030) Urine Protein (Negative) Urine Glucose (UA) (Negative) Urine Ketones (Negative) Urine Blood (Negative) Urine Nitrite (Negative) Urine Bilirubin (Negative) Urine Urobilinogen (Negative) Ur Leukocyte Esterase (Negative) Urine WBC (Auto) (0-5) /hpf Urine RBC (Auto) (0-4) /hpf U Hyaline Cast (Auto) (0-5) /lpf U Epithel Cells (Auto) (0-5) /lpf Urine Bacteria (Auto) (Negative) Lyme Disease IgG Ab (Negative) Lyme Disease IgM Ab (Negative) COVID-19 Eval Order SARS-CoV-2 (PCR) (Negative) 03/12/21 Range/Units 21:25 WBC 13.39 H (4.8-10.8) K/uL RBC 4.48 (4.2-5.4) M/uL Hgb 13.8 (12.0-16.0) g/dL Hct 40.0 (37-47) % MCV 89.3 (80-100) fL MCH 30.8 (25-34) pg MCHC 34.5 (32-36) g/dL RDW Std Deviation 42.7 (36.4-46.3) fL RDW Coeff of Homar 13.0 (11.5-14.5) % Plt Count 228 (130-400) K/uL MPV 10.1 (7.4-10.4) fL Immature Gran % (Auto) 0.2 % Neut % (Auto) 78.1 % Lymph % (Auto) 13.2 % [place] % (Auto) 8.2 % Eos % (Auto) 0.2 % Baso % (Auto) 0.1 % Neut # (Auto) 10.44 H (1.4-6.5) K/uL Lymph # (Auto) 1.77 (1.2-3.4) K/uL [place] # (Auto) 1.10 H (0.11-0.59) K/uL Eos # (Auto) 0.03 (0-0.5) K/uL Baso # (Auto) 0.02 (0-0.2) K/uL Immature Gran # (Auto) 0.03 H (0.00-0.02) K/uL ESR (0-30) mm/hr PT (9.0-12.0) Seconds INR (0.9-1.1) APTT (21.0-31.0) Seconds PTT Ratio Sodium (136-145) mmol/L Potassium (3.5-5.1) mmol/L Chloride (98-107) mmol/L Carbon Dioxide (21-32) mmol/L Anion Gap (3-11) BUN (7-18) mg/dl Creatinine (0.6-1.2) mg/dl Est Cr Clr Drug Dosing ml/min Est GFR ( Amer) ml/min Est GFR (Non-Af Amer) ml/min BUN/Creatinine Ratio (10-20) Glucose (70-99) mg/dl Lactate (0.4-2.0) mmol/L Uric Acid (2.6-7.2) mg/dl Calcium (8.5-10.1) mg/dl Magnesium (1.8-2.4) mg/dl Total Bilirubin (0.2-1) mg/dl AST (15-37) U/L ALT (12-78) U/L Alkaline Phosphatase (45-117) U/L Total Creatine Kinase (26-192) U/L Troponin I (0-0.045) ng/ml C-Reactive Protein (0-0.29) mg/dl Total Protein (6.4-8.2) gm/dl Albumin (3.4-5.0) gm/dl Globulin (2.5-4.0) gm/dl Albumin/Globulin Ratio (0.9-2) Urine Color Urine Appearance (Clear) Urine pH (4.5-7.5) Ur Specific [place] (1.000-1.030) Urine Protein (Negative) Urine Glucose (UA) (Negative) Urine Ketones (Negative) Urine Blood (Negative) Urine Nitrite (Negative) Urine Bilirubin (Negative) Urine Urobilinogen (Negative) Ur Leukocyte Esterase (Negative) Urine WBC (Auto) (0-5) /hpf Urine RBC (Auto) (0-4) /hpf U Hyaline Cast (Auto) (0-5) /lpf U Epithel Cells (Auto) (0-5) /lpf Urine Bacteria (Auto) (Negative) Lyme Disease IgG Ab (Negative) Lyme Disease IgM Ab (Negative) COVID-19 Eval Order SARS-CoV-2 (PCR) (Negative) Diagnostic Findings Foot X-Ray 03/12/21 23:19 XR foot RT min 3V routine CLINICAL HISTORY: cellulitis, concern for osteomyelitis. Right foot swelling. COMPARISON STUDY: None. FINDINGS: No fracture or dislocation within the right foot. Degenerative changes noted at the tarsometatarsal joint and interphalangeal joints of the toes. There is soft tissue swelling within the medial aspect of the right forefoot and right first toe. No bony destruction to suggest osteomyelitis. No radiopaque foreign bodies. IMPRESSION: Soft tissue swelling within the medial aspect of the right forefoot and right first toe. No underlying bony destruction to suggest an osteomyelitis. ACT 112: Negative or not required by law. Electronically signed by: Messi Hoskins M.D. 03/13/2021 8:02 AM Ankle X-Ray 03/13/21 03:32 XR ankle LT min 3V routine HISTORY: 55 years-old Female ankle pain and swelling acute pain and swelling of the left foot and ankle COMPARISON: Foot radiographs of same day TECHNIQUE: 3 views of the left ankle FINDINGS: Moderate circumferential soft tissue swelling. Moderate multifocal osteoarthritis. Corticated ossifications are noted adjacent to the distal fibula. Pes planus with spurring of the calcaneus. No acute fracture, dislocation or osseous erosion identified. IMPRESSION: Soft tissue swelling without acute fracture or osseous erosion identified. ACT 112: Negative or not required by law. The above report was generated using voice recognition software. It may contain grammatical, syntax or spelling errors. Electronically signed by: Anibal Bennett M.D. 03/13/2021 7:08 AM PG Care Time/CCT Total # of Minutes Spent Total Time Spent with Patient: Total time spent is greater than 50% in coordination of care (as documented) at patient's floor/unit and/or counseling patient: Coding Level of Care Code None Diagnoses Toe swelling M79.89 Ankle pain M25.579 Cellulitis of great toe, right L03.031 Toenail fungus B35.1
[2021-03-13] MEDS: cefTRIAXone SODIUM 2,000 MG in DEXTROSE 5% 50 ML IV SCH (14:47)
[2021-03-13] MEDS: ENOXAPARIN INJ 30 MG/0.3 ML SYR SQ SCH (14:48)
[2021-03-13] MEDS ORDERED: LIDOCAINE 1% LOCAL 20 ML VIAL ONE (16:28)
--- NOTE | 2021-03-13 20:18 | Podiatry Consultation ---
Date of Consultation March 13, 2021 Assessment & Plan (1) Cellulitis of great toe, right: Reviewed elevated WBC and normal uric acid. The suspicion for Pseudogout is low. Objective findings consistent with cellulitis. Due to Patient's report of previous drainage from adjacent nail and Patient's request for removal of fungal right great toenail plate her nail plate was removed today with out incident. See procedure noted below. No purulent drainage was noted upon removal of nail. Culture was obtained under nail plate. Operative Report Preoperative diagnosis: Painful, fungal nail right hallux with adjacent cellulitis Postoperative diagnosis: Same Name of operative: Total nail avulsion Anesthesia: 3cc of 1% lidocaine plain right hallux digital block Procedure in detail: After consent was obtained the patient attention was directed to the surgical toe. The area surrounding the skin lesion was prepared and draped in the usual aseptic manner. The toe was prepped with povidone-iodine solution. A standard digital block was performed, using a 3-mL syringe and a 27-gauge needle. 3 mL of 1% lidocaine was utilized in a digital block producing adequate anesthesia. A wait of five minutes allowed the block to become effective. A sterile darshan drain tourniquet was applied proximal to the operative site on the right hallux. The toe was rewashed with surgical solution. A nail elevator was slid under the cuticle to separate the nail plate from the overlying proximal nail fold. The nail plate was then gently pulled free with a hemostat. A culture was obtained at the nail bed. The tourniquet was removed and a prompt hyperemic response was seen to the toe. Dry, sterile, dressing was applied consisting of 2x2 gauze and coban. The patient tolerated anesthesia and the procedure well (2) Ankle pain: (3) Toe swelling: (4) Cellulitis of foot, right: (5) Toenail fungus: History of Present Illness Attending Physician: Julio Wills History of Present Illness Sonali Singh is a 55yo female who is seen at bedside for right foot cellulitis. She was seen in [facility] ED last evening for severe pain and swelling in the right great toe. Patient states that she has chronic drainage adjacent from the right great toenail, typically clear fluid, non-purulent. Two days ago her toe began to swell more and become red and tender. She notes joint pains and swelling on occasion. States she had painful swelling in her left ankle 2 months ago. She took antibiotics with little improvement. Allergies Allergy/AdvReac Type Severity Reaction Status Date / Time No Known Allergies Allergy Verified 03/13/21 06:14 Home Medications Medication Instructions Recorded Confirmed Type No Known Home Medications 03/13/21 03/13/21 History Patient History Medical History No significant past medical history Surgical History History of section History of colon surgery History of hernia repair Social History Smoking Status: Never smoker Hx Alcohol Use: No Hx Substance Use: No Preferred Language: Palauan Communication Ability: Effective Cane Splicer Required: No Beliefs That Will Affect Care: None Current Living Situation: Spouse Feels Safe at Home: Yes Assistive Devices: None Review of Systems Constitutional: Patient denies constitutional symtomps Respiratory: regular rate and rhythm Musculoskeletal: as per Subjective / HPI Neurologic: Epicritic sensation decreased to bilateral lower extremities Psychiatric: Normal affect and demeanor Physical Exam Constitutional: WD/WN, vitals as above Eyes: PERRL, conjunctivae normal, anicteric sclerae ENMT: external ear and nose normal, oropharynx normal Neck: trachea midline, no thyromegaly Respiratory: normal respiratory effort, lungs clear to auscultation Skin: Erythema right forefoot. Right hallux nail plate is thickened, dystrophic, discolored, hypertrophic, with sub ungual debris. Pedal pulses palpable bilateral. [employer] wnl. Neurologic: PERRL, EOMI, accommodation nl, no face palsy, no dysarthria Decreased epicritic sensation to bilateral feet Psychiatric: A+Ox3, euthymic affect Results & Data ([facility]) Vital Signs (Past 12 Hours) Vital Signs Temp Pulse Resp BP Pulse Ox 03/13/21 16:02 37.4 C 77 16 127/72 97 Diagnostic Findings XR ankle LT min 3V routine HISTORY: 55 years-old Female ankle pain and swelling acute pain and swelling of the left foot and ankle COMPARISON: Foot radiographs of same day TECHNIQUE: 3 views of the left ankle FINDINGS: Moderate circumferential soft tissue swelling. Moderate multifocal osteoarthritis. Corticated ossifications are noted adjacent to the distal fibula. Pes planus with spurring of the calcaneus. No acute fracture, dislocation or osseous erosion identified. IMPRESSION: Soft tissue swelling without acute fracture or osseous erosion identified. XR foot RT min 3V routine CLINICAL HISTORY: cellulitis, concern for osteomyelitis. Right foot swelling. COMPARISON STUDY: None. FINDINGS: No fracture or dislocation within the right foot. Degenerative changes noted at the tarsometatarsal joint and interphalangeal joints of the toes. There is soft tissue swelling within the medial aspect of the right forefoot and right first toe. No bony destruction to suggest osteomyelitis. No radiopaque foreign bodies. IMPRESSION: Soft tissue swelling within the medial aspect of the right forefoot and right first toe. No underlying bony destruction to suggest an osteomyelitis.
[2021-03-14] MEDS: ACETAMINOPHEN 325 MG TAB PO PRN ×3 (04:02→22:20)
[2021-03-14 05:50] LABS: Basophils # (auto) 0.02 K/uL (0-0.2); Basophils % (auto) 0.2 %; Eosinophils # (auto) 0.29 K/uL (0-0.5); Eosinophils % (auto) 3.1 %; Hematocrit (blood only) 35.4 % (37-47); Immature Granulocytes # (auto) 0.02 K/uL (0.00-0.02); Immature Granulocytes % (auto) 0.2 %; Lymphocytes # (auto) 1.48 K/uL (1.2-3.4); Lymphocytes % (auto) 15.6 %; Mean Corpuscular Hemoglobin 30.4 pg (25-34); Mean Corpuscular Hgb Conc 33.9 g/dL (32-36); Mean Corpuscular Volume 89.6 fL (80-100); Mean Platelet Volume 9.9 fL (7.4-10.4); Monocytes # (auto) 0.87 K/uL (0.11-0.59); Monocytes % (auto) 9.2 %; Neutrophils # (auto) 6.81 K/uL (1.4-6.5); Neutrophils % (auto) 71.7 %; Platelet Count 240 K/uL (130-400); RDW Coefficient of Variation 12.8 % (11.5-14.5); RDW Standard Deviation 42.2 fL (36.4-46.3); Red Blood Count 3.95 M/uL (4.2-5.4); White Blood Count 9.49 K/uL (4.8-10.8)
[2021-03-14 06:18] LABS: Albumin Level 2.7 gm/dl (3.4-5.0); BUN Creatinine Ratio 18.5 (10-20); Calcium 8.5 mg/dl (8.5-10.1); Creatinine Clr Calc Pharmacy 85.4 ml/min; Est GFR (African American) 112.5 ml/min; Est GFR (Non-African American) 97.1 ml/min
[2021-03-14 06:20] LABS: Albumin Globulin Ratio 0.7 (0.9-2); Bilirubin,Total 0.4 mg/dl (0.2-1); Globulin 3.9 gm/dl (2.5-4.0); Potassium 3.7 mmol/L (3.5-5.1); Total Protein 6.6 gm/dl (6.4-8.2)
[2021-03-14] MEDS: cefTRIAXone SODIUM 2,000 MG in DEXTROSE 5% 50 ML IV SCH (08:55)
[2021-03-14] MEDS: ENOXAPARIN INJ 30 MG/0.3 ML SYR SQ SCH (09:02)
[2021-03-14] MEDS: COLCHICINE 0.6 MG TAB PO SCH ×2 (09:02→20:27)
--- NOTE | 2021-03-14 09:36 | Hospitalist Progress Note ---
Date of Service March 14, 2021 Assessment & Plan (1) Toe swelling: Plan: 55yo [employer] female with no significant past medical history (hx colon surgery/hernia repair) presenting with severe pain, swelling, warmth of right great toe. Patient with longstanding history of what she believes to be a fungal infection of the toe - daily serous drainage which stopped 2 days ago. No trauma, foreign body. Xray with no obvious osteomyelitis. Ddx to include infection vs gout Colchicine 1.2mg po x 1 then 0.6mg po BID --> States improvement in pain however uric acid wnl 3.2 and likely could d/c this WBC elevated on admission 13.3k CRP 14.4, ESR 60 Urine and blood cultures pending (reports "maybe fever at Urgent care" Vancomycin -- no risk factors and will deescalate to Rocephin Remains afebrile 03/14 Switched to Rocephin given lack of risk factors for MRSA on 03/13 --> wound cx with staph species --> follow cx/s s/p Total nail avulsion RIGHT 1st great hallux on 03/[address] Dietrich -- adaptic, 2x2 and coban for dressing. consider f/u at d/c WBC 9.4k CRP 12 from 14.4 Continues on colchicine for possible gout -- given improvement can continue but suspect tx of cellulitis should be sufficient Remains afebrile Pain controlled with tylenol currently Oxycodone if needed Lovenox SQ for DVT prophylaxis (2) Ankle pain: Patient states she had swelling and tenderness of her left ankle. No trauma X-ray --> soft tissue swelling without acute fracture or osseous erosion identified Not red on exam today and pain reported controlled at her usual chronic level Pain control as above (3)Fatigue/weakness -- suspect 2nd to infection. tx as above will order PT evals Urine cx with pin-point growth, re-incubating --> monior (3) DVT Prophylaxis Lovenox SQ daily Changed to full admit Dispo -- plans for d/c tomorrow on oral abx (2) Ankle pain: (3) Cellulitis of great toe, right: (4) Toenail fungus: Admission and Anticipated Discharge Date Admission Date: March 13, 2021 Supervising Physician Co-Signing Physician Notes Attending Attestation - Chart reviewed, care plan d/w BRITTANEY Smith. I agree w/ the ellison components of her documentation. Treating for both cellulitis and gout. Abx selection appropriate. Noted that R great toenail was removed by podiatry yesterday (Dr Dietrich) -- podiatry assistance appreciated Julio Wills MD Subjective Patient evaluated this afternoon. Pain improved. Erythema improving as well as edema, well within markings and receeding from forefoot. halux nail removed last night by Dr Dietrich. Feeling much better but not much energy. Discussed cx with stap but will await sensitivities before changing to PO abx. No fever, chills, chest pain, shortness of breath, abdominal pain, n/v or dysuria at this time. Confirmed no drainage from adjacent toe but rather had only been from the great toe under nail bed. Would like to follow up with podiatry outpatient but will discuss with Dr. Dietrich this evening and if agreeable will arrange follow up care. Questions/concerns address. Patient agreeable to plan. Review of Systems Review of Systems: All systems reviewed & are unremarkable except as noted in HPI & below Physical Exam Physical Exam: General: patient resting comfortably, NAD, non-toxic in appearance, AA&O x 4 Skin: warm, dry, intact, no rashes or lesions HEENT: NC/AT, PERRL, EOMI, anicteric sclera, conjunctiva without injection, external ear normal to inspection and nontender, nares patent, moist mucus membranes, dentition intact, no oropharyngeal lesions, neck supple, trachea midline, no LAD, no thyromegaly, no JVD Heart: +S1/S2, regular, no m/r/g Lungs: equal air entry bilaterally, no rales/rhonchi/wheezes Abd: +BS, soft, NT/ND, no masses/organomegaly/ascites Ext: warm, 2+ pulses in UE/LE bilaterally, right 1st toe swollen (decreased), tender to palpation (decreased), decreased warmth and erythema, within markings and receeding to forefoot. hallus nail s/p removal with dressing c/d/i. cap refill <3 seconds and pulses palpable bilaterally Neuro: nonfocal, patient AA&O x 4, speech intact, no facial droop, moving all extremities on command with equal strength 5/5 Results & Data Results & Data ([facility]) Vital Signs (Past 12 Hours) Vital Signs Temp Pulse Resp BP BP Pulse Ox 03/14/21 08:24 36.8 C 66 16 144/84 H 96 03/13/21 22:03 37.5 C 75 16 149/86 H 95 Laboratory Results 03/14/21 03/14/21 03/13/21 Range/Units 05:22 05:22 09:21 WBC 9.49 (4.8-10.8) K/uL RBC 3.95 L (4.2-5.4) M/uL Hgb 12.0 (12.0-16.0) g/dL Hct 35.4 L (37-47) % MCV 89.6 (80-100) fL MCH 30.4 (25-34) pg MCHC 33.9 (32-36) g/dL RDW Std Deviation 42.2 (36.4-46.3) fL RDW Coeff of Homar 12.8 (11.5-14.5) % Plt Count 240 (130-400) K/uL MPV 9.9 (7.4-10.4) fL Immature Gran % (Auto) 0.2 % Neut % (Auto) 71.7 % Lymph % (Auto) 15.6 % [place] % (Auto) 9.2 % Eos % (Auto) 3.1 % Baso % (Auto) 0.2 % Neut # (Auto) 6.81 H (1.4-6.5) K/uL Lymph # (Auto) 1.48 (1.2-3.4) K/uL [place] # (Auto) 0.87 H (0.11-0.59) K/uL Eos # (Auto) 0.29 (0-0.5) K/uL Baso # (Auto) 0.02 (0-0.2) K/uL Immature Gran # (Auto) 0.02 (0.00-0.02) K/uL Sodium 139 (136-145) mmol/L Potassium 3.7 (3.5-5.1) mmol/L Chloride 106 (98-107) mmol/L Carbon Dioxide 27 (21-32) mmol/L Anion Gap 5.0 (3-11) BUN 13 (7-18) mg/dl Creatinine 0.68 (0.6-1.2) mg/dl Est Cr Clr Drug Dosing 85.4 ml/min Est GFR ( Amer) 112.5 ml/min Est GFR (Non-Af Amer) 97.1 ml/min BUN/Creatinine Ratio 18.5 (10-20) Glucose 122 H (70-99) mg/dl Calcium 8.5 (8.5-10.1) mg/dl Total Bilirubin 0.4 (0.2-1) mg/dl AST 15 (15-37) U/L ALT 15 (12-78) U/L Alkaline Phosphatase 52 (45-117) U/L Total Creatine Kinase (26-192) U/L C-Reactive Protein 12.00 H (0-0.29) mg/dl Total Protein 6.6 (6.4-8.2) gm/dl Albumin 2.7 L (3.4-5.0) gm/dl Globulin 3.9 (2.5-4.0) gm/dl Albumin/Globulin Ratio 0.7 L (0.9-2) Lyme Disease IgG Ab Negative (Negative) Lyme Disease IgM Ab Negative (Negative) 03/13/21 Range/Units 09:21 WBC (4.8-10.8) K/uL RBC (4.2-5.4) M/uL Hgb (12.0-16.0) g/dL Hct (37-47) % MCV (80-100) fL MCH (25-34) pg MCHC (32-36) g/dL RDW Std Deviation (36.4-46.3) fL RDW Coeff of Homar (11.5-14.5) % Plt Count (130-400) K/uL MPV (7.4-10.4) fL Immature Gran % (Auto) % Neut % (Auto) % Lymph % (Auto) % [place] % (Auto) % Eos % (Auto) % Baso % (Auto) % Neut # (Auto) (1.4-6.5) K/uL Lymph # (Auto) (1.2-3.4) K/uL [place] # (Auto) (0.11-0.59) K/uL Eos # (Auto) (0-0.5) K/uL Baso # (Auto) (0-0.2) K/uL Immature Gran # (Auto) (0.00-0.02) K/uL Sodium (136-145) mmol/L Potassium (3.5-5.1) mmol/L Chloride (98-107) mmol/L Carbon Dioxide (21-32) mmol/L Anion Gap (3-11) BUN (7-18) mg/dl Creatinine (0.6-1.2) mg/dl Est Cr Clr Drug Dosing ml/min Est GFR ( Amer) ml/min Est GFR (Non-Af Amer) ml/min BUN/Creatinine Ratio (10-20) Glucose (70-99) mg/dl Calcium (8.5-10.1) mg/dl Total Bilirubin (0.2-1) mg/dl AST (15-37) U/L ALT (12-78) U/L Alkaline Phosphatase (45-117) U/L Total Creatine Kinase 67 (26-192) U/L C-Reactive Protein (0-0.29) mg/dl Total Protein (6.4-8.2) gm/dl Albumin (3.4-5.0) gm/dl Globulin (2.5-4.0) gm/dl Albumin/Globulin Ratio (0.9-2) Lyme Disease IgG Ab (Negative) Lyme Disease IgM Ab (Negative) PG Care Time/CCT Total # of Minutes Spent Total Time Spent with Patient: Total time spent is greater than 50% in coordination of care (as documented) at patient's floor/unit and/or counseling patient: Coding Level of Care Code 12393 Subseq Hosp Care Lvl 2 Diagnoses Toe swelling M79.89 Ankle pain M25.579 Cellulitis of great toe, right L03.031 Toenail fungus B35.1
[2021-03-14] MEDS ORDERED: hydrALAZINE HCL 20 MG/ML VIAL IV PRN (18:22)
--- NOTE | 2021-03-14 21:14 | Podiatry Consultation ---
Date of Consultation March 14, 2021 Assessment & Plan (1) Cellulitis of great toe, right: Reviewed culture obtained under nail plate Preliminary Staphylococcus. Awaiting sensitives for abx prior to discharge. Dressing changed today with out incident. Discussed use of adaptic non adherent dressing for dressing changes after discharge. Thank you for allowing me to participate in the care of this Patient. Will continue to follow while in house. (2) Ankle pain: (3) Toe swelling: (4) Cellulitis of foot, right: (5) Toenail fungus: History of Present Illness Attending Physician: Julio Wills History of Present Illness Patient seen at bedside resting comfortably. She has no complaints. Her dressing is intact. Allergies Allergy/AdvReac Type Severity Reaction Status Date / Time No Known Allergies Allergy Verified 03/13/21 06:14 Home Medications Medication Instructions Recorded Confirmed Type No Known Home Medications 03/13/21 03/13/21 History Patient History Medical History No significant past medical history Surgical History History of section History of colon surgery History of hernia repair Social History Smoking Status: Never smoker Hx Alcohol Use: No Hx Substance Use: No Preferred Language: Hebrew Communication Ability: Effective Dormitory Supervisor Required: No Beliefs That Will Affect Care: None Current Living Situation: Spouse Other Information That Helps Us Care for You: No Feels Safe at Home: Yes Safety Concerns: Feels Safe At This Time Assistive Devices: None Review of Systems Constitutional: Patient denies constitutional symtomps Respiratory: regular rate and rhythm Musculoskeletal: as per Subjective / HPI Neurologic: Epicritic sensation decreased to bilateral lower extremities Psychiatric: Normal affect and demeanor Physical Exam Constitutional: WD/WN, vitals as above Eyes: PERRL, conjunctivae normal, anicteric sclerae ENMT: external ear and nose normal, oropharynx normal Neck: trachea midline, no thyromegaly Respiratory: normal respiratory effort, lungs clear to auscultation Skin: Erythema is decreasing to left forefoot. Absent left hallux nail plate shows positive signs of healing. Neurologic: PERRL, EOMI, accommodation nl, no face palsy, no dysarthria Psychiatric: A+Ox3, euthymic affect Results & Data ([facility]) Vital Signs (Past 12 Hours) Vital Signs Temp Pulse Resp BP Pulse Ox 03/14/21 16:00 37.1 C 79 20 149/92 H 96 Diagnostic Findings Aero/Christina Cult Preliminary 03/14/21-1146 Organism 1 Staphylococcus species Quantity Rare Sens Sensitivities to Follow
[2021-03-14] MEDS ORDERED: VANCOMYCIN TROUGH ONE (21:30)
[2021-03-14] MEDS ORDERED: hydrALAZINE HCL 20 MG/ML VIAL IV ONE (21:53)
[2021-03-15 06:33] LABS: Basophils # (auto) 0.03 K/uL (0-0.2); Basophils % (auto) 0.4 %; Eosinophils # (auto) 0.22 K/uL (0-0.5); Eosinophils % (auto) 2.7 %; Hematocrit (blood only) 36.3 % (37-47); Hemoglobin 12.4 g/dL (12.0-16.0); Immature Granulocytes # (auto) 0.01 K/uL (0.00-0.02); Immature Granulocytes % (auto) 0.1 %; Lymphocytes # (auto) 1.68 K/uL (1.2-3.4); Lymphocytes % (auto) 20.6 %; Mean Corpuscular Hemoglobin 30.7 pg (25-34); Mean Corpuscular Hgb Conc 34.2 g/dL (32-36); Mean Corpuscular Volume 89.9 fL (80-100); Mean Platelet Volume 9.3 fL (7.4-10.4); Monocytes # (auto) 0.77 K/uL (0.11-0.59); Monocytes % (auto) 9.4 %; Neutrophils # (auto) 5.44 K/uL (1.4-6.5); Neutrophils % (auto) 66.8 %; Platelet Count 275 K/uL (130-400); RDW Coefficient of Variation 13.1 % (11.5-14.5); RDW Standard Deviation 42.7 fL (36.4-46.3); Red Blood Count 4.04 M/uL (4.2-5.4); White Blood Count 8.15 K/uL (4.8-10.8)
[2021-03-15 07:07] LABS: BUN Creatinine Ratio 11.8 (10-20); C Reactive Protein 9.45 mg/dl (0-0.29); Calcium 9.3 mg/dl (8.5-10.1); Creatinine Clr Calc Pharmacy 81.8 ml/min; Est GFR (African American) 109.6 ml/min; Est GFR (Non-African American) 94.6 ml/min; Potassium 4.3 mmol/L (3.5-5.1)
[2021-03-15] MEDS: ACETAMINOPHEN 325 MG TAB PO PRN ×2 (07:41→13:34)
--- NOTE | 2021-03-15 08:32 | Hospitalist Progress Note ---
Date of Service March 15, 2021 Assessment & Plan Admission and Anticipated Discharge Date Admission Date: March 14, 2021 Results & Data Results & Data ([facility]) Vital Signs (Past 12 Hours) Vital Signs Temp Pulse Resp BP Pulse Ox 03/15/21 07:17 37.2 C 74 15 132/86 96 03/14/21 22:32 37.8 C H 81 15 153/92 H 95 Laboratory Results 03/15/21 03/15/21 03/15/21 Range/Units 06:18 06:18 06:18 WBC 8.15 (4.8-10.8) K/uL RBC 4.04 L (4.2-5.4) M/uL Hgb 12.4 (12.0-16.0) g/dL Hct 36.3 L (37-47) % MCV 89.9 (80-100) fL MCH 30.7 (25-34) pg MCHC 34.2 (32-36) g/dL RDW Std Deviation 42.7 (36.4-46.3) fL RDW Coeff of Homar 13.1 (11.5-14.5) % Plt Count 275 (130-400) K/uL MPV 9.3 (7.4-10.4) fL Immature Gran % (Auto) 0.1 % Neut % (Auto) 66.8 % Lymph % (Auto) 20.6 % [place] % (Auto) 9.4 % Eos % (Auto) 2.7 % Baso % (Auto) 0.4 % Neut # (Auto) 5.44 (1.4-6.5) K/uL Lymph # (Auto) 1.68 (1.2-3.4) K/uL [place] # (Auto) 0.77 H (0.11-0.59) K/uL Eos # (Auto) 0.22 (0-0.5) K/uL Baso # (Auto) 0.03 (0-0.2) K/uL Immature Gran # (Auto) 0.01 (0.00-0.02) K/uL ESR 52 H (0-30) mm/hr Sodium 139 (136-145) mmol/L Potassium 4.3 D (3.5-5.1) mmol/L Chloride 107 (98-107) mmol/L Carbon Dioxide 29 (21-32) mmol/L Anion Gap 3.0 (3-11) BUN 8 D (7-18) mg/dl Creatinine 0.71 (0.6-1.2) mg/dl Est Cr Clr Drug Dosing 81.8 ml/min Est GFR ( Amer) 109.6 ml/min Est GFR (Non-Af Amer) 94.6 ml/min BUN/Creatinine Ratio 11.8 (10-20) Glucose 99 (70-99) mg/dl Calcium 9.3 (8.5-10.1) mg/dl C-Reactive Protein 9.45 H (0-0.29) mg/dl PG Care Time/CCT Total # of Minutes Spent Total Time Spent with Patient: Total time spent is greater than 50% in coordination of care (as documented) at patient's floor/unit and/or counseling patient: Coding
[2021-03-15] MEDS: cefTRIAXone SODIUM 2,000 MG in DEXTROSE 5% 50 ML IV SCH (09:14)
[2021-03-15] MEDS: ENOXAPARIN INJ 30 MG/0.3 ML SYR SQ SCH (09:19)
[2021-03-15] MEDS: COLCHICINE 0.6 MG TAB PO SCH (09:20)
--- NOTE | 2021-03-15 11:46 | Discharge Summary ---
Date of Service March 15, 2021 Admission HPI Per Admitting Provider Sonali Singh is a 55yo female presenting with severe pain and swelling in the right great toe. Patient states that she has chronic drainage from the right great toe, typically clear fluid, non-purulent. Two days ago her toe began to swell more and become red and tender. She noted that there was no drainage. She tried to squeeze it to relieve some pressure but was unsuccessful. She was seen in Urgent Care for this complaint today and was subsequently sent to the ER. She denies fever, chills, malaise, nausea, vomiting, diarrhea, constipation. She has had poor appetite She notes joint pains and swelling on occasion. States she had painful swelling in her left ankle 2 months ago. She took antibiotics with little improvement. Admission Exam Per Admitting Provider General: patient resting comfortably, NAD, non-toxic in appearance, AA&O x 4 Skin: warm, dry, intact, no rashes or lesions HEENT: NC/AT, PERRL, EOMI, anicteric sclera, conjunctiva without injection, external ear normal to inspection and nontender, nares patent, moist mucus membranes, dentition intact, no oropharyngeal lesions, neck supple, trachea midline, no LAD, no thyromegaly, no JVD Heart: +S1/S2, regular, no m/r/g Lungs: equal air entry bilaterally, no rales/rhonchi/wheezes Abd: +BS, soft, NT/ND, no masses/organomegaly/ascites Ext: warm, 2+ pulses in UE/LE bilaterally, right 1st toe swollen, tender to palpation, warm, redness on dorsum of foot Neuro: nonfocal, patient AA&O x 4, speech intact, no facial droop, moving all extremities on command with equal strength 5/5 Principal Diagnosis Cellulitis, Possible Gout Discharge Exam General: patient resting comfortably, NAD, non-toxic in appearance, AA&O x 4 Skin: warm, dry HEENT: NC/AT, PERRL, EOMI, anicteric sclera, conjunctiva without injection, external ear normal to inspection and nontender, nares patent, moist mucus membranes, dentition intact, no oropharyngeal lesions, neck supple, trachea midline, no LAD, no thyromegaly, no JVD Heart: +S1/S2, regular, no m/r/g Lungs: equal air entry bilaterally, no rales/rhonchi/wheezes Abd: +BS, soft, NT/ND, no masses/organomegaly/ascites Ext: warm, 2+ pulses in UE/LE bilaterally, right 1st toe swollen (much decreased), tender to palpation (much decreased and almost none), decreased warmth and erythema, within markings and receeding to forefoot., still with some erythema to 1st toe, no purulent drainage hallus nail s/p removal (blackened/fungal in appearance) with dressing c/d/i. cap refill <3 seconds and pulses palpable bilaterally able to bear weight without issue Neuro: nonfocal, patient AA&O x 4, speech intact, no facial droop, moving all extremities on command with equal strength 10/11 Discharge Data Allergies Allergy/AdvReac Type Severity Reaction Status Date / Time No Known Allergies Allergy Verified 03/13/21 06:14 Consultations 03/13/21 00:17 ED Decision to Admit Stat 03/13/21 12:34 Consult Podiatry Routine Hospital Course (1) Toe swellinyo Joshua female with no significant past medical history (hx colon surgery/hernia repair) presenting with severe pain, swelling, warmth of right great toe. Patient with longstanding history of what she believes to be a fungal infection of the toe - daily serous drainage which stopped 2 days ago. No trauma, foreign body. Xray with no obvious osteomyelitis. Ddx to include infection vs gout vs both possible CRP 14.4, ESR 60 Colchicine 1.2mg po x 1 then 0.6mg po BID --> States improvement in pain however uric acid wnl 3.2 Vancomycin -- no risk factors and will deescalate to Rocephin --> switched to Keflex at discharge given MSSA on wound cx s/p toenail avulsion by Dr. Dietrich on 03/13 (to be continued to cover adaptic, 2x2, coban and supplies provided) WBC elevated on admission 13.3k --> 8.1k, remained afebrile and erythema/edema and pain all decreased significantly prior to discharge Also with concerns for gout and colchicine was used --> $$ and recommended continued use of ibuprofen at discharge along with tylenol as needed around the clock. Urine cx negative Blood cultures NGTD 48hrs Utilized Lovenox Sq whil inpatient for DVT Prophylaxis (2) Ankle pain: (3) Cellulitis of great toe, right: (4) Toenail fungus: f/u podiatry as needed number for Dr Dietrich provided to scheduled follow up Total Time Total Time Spent Total Time Spent (In Minutes): 35 Discharge Plan Discharge Items Patient Disposition: Home - Self-Care Reason For Visit: RIGHT TOE PAIN Discharge Diagnosis: Cellulitis due to staph aureus, possible gout as well Goals: You have been hospitalized for an acute medical problem. During your stay at [facility], we have made an effort to correct the problem that brought you to the hospital while keeping you as comfortable as possible. Medications were used to bring your condition under control and your discharge instructions will include directions for any medications you should take after leaving the hospital. Please make sure you see your Primary Care Provider as part of your follow up plan. Activity: Resume your previous activity Activity Comment: but please keep leg elevated as much as possible over next week Non-emergency contact: Primary Care Provider and Specialist Call non-emergency contact if: you have any medication questions, your symptoms worsen, your pain is not controlled and you have a fever Follow-up/Referrals: Jakub Crespo M.D. [Non-Staff] - ([facility] [employer] [employer] ARE SETTING UP A HOSPITAL F/U APPT.) Nolan Dietrich DPM, MS [Physician] - 04/13/21 1:15 pm (1 month, patient request APPT AT [place] [facility] [address] [place] [address], [place], [place]) Diet: Regular Addtl Attending Provider Instructions: You have been hospitalized for a cellulitis. Podiatry was consulted and removed your toenail from your great toe and cultures were sent due to reported drainage from that site. As discussed, this is likely the entry point for bacteria to get in and cause a cellulitis much like what happened currently. Cultures showed staph infection and antibiotics were first given in IV and we looked at what oral antibiotics should be best/which ones this bacteria would be able to be treated against. You have had GREAT response. You will be continued on cephalexin 500mg THREE TIMES a DAY every EIGHT HOURS for a total of 10 days. You got 3 days of IV antibiotics and have another SEVEN left. A prescription has been sent to [facility] in [place]. The address is [address] [place] [address], [place] [address] and phone number is if any questions. For pain control, you may alternate ACETAMINOPHEN (TYLENOL) and IBUPROFEN (MO LINDA). You can take ACETAMINOPHEN every 6 hours as well as the Ibuprofen so if you need around the clock control you can alternate every three hours as discussed. Just ensure you do not take over 3,000mg of tylenol (6 of the 500mg tablets) or 2400mg of ibuprofen in a 24 hour period of time for about a week to help with inflammation. You should continue to elevate the leg to promote wound healing and should keep your toenail covered with dressings as provided by staff per Dr Dietrich. If you would like to follow up with Dr. Dietrich at discharge, you may call their office at [phone] to arrange this. Please follow up with a medical provider in the next week to monitor your progress. Please return to the emergency department with any fevers, worsening redness or pain, or for any other symptoms that are concerning for you. It has been a pleasure being a part of the medical team providing for you while you have been in the hospital. Take care! Pending Studies at Discharge: No Stand-Alone Forms: My [facility] Medications and DC Order Prescriptions: New acetaminophen 325 mg Tablet 500 mg PO Q6H PRNQty: 0 RF: 0 cephalexin 500 mg tablet 500 mg PO TID 7 Days Qty: 21 RF: 0 ibuprofen 600 mg tablet 600 mg PO Q6H PRN (Reason: pain) Qty: 10 RF: 0 Discharge Orders: Discharge Order (Routine); Ordered 03/15/21 Ordered By: Darling Lamb/Other Patient Handouts: Taking NSAIDs Safely, Managing Chronic Pain Admission Data Admit Date/Time: 03/14/21 12:48 Attending Provider: Julio Wills Admit Provider: Velvet Mike Primary Care Provider: Lawanda Sullivan Other Providers: Velvet Mike ; Nolan Dietrich Other Interventions: Discharge Summary Assessment (RN) Last Done: 03/15/21 13:37 Supervising Physician Co-Signing Physician Notes Attending Attestation - Pt seen & examined, chart reviewed, discharge care plan d/w BRITTANEY Smith. I agree w/ the ellison components of her documentation. 55yo female who presented with right great toe pain, redness and swelling along with mid-foot redness as well. She was treated for both cellulitis and possible gout. Seen by podiatry, Dr Dietrich, who removed her R great toenail. Culture from the right great toe grew MSSA. At discharge she will complete a course of keflex for the MSSA, and will take ibuprofen for possible gout of the R foot. She will f/u with Dr Dietrich post-discharge. Discharge exam - gen - NAD, pleasant mouth - MMM heart - RRR, s1 s2, no murmur lungs - CTA b/l abd - soft, NT, ND, BS+ skin - erythema of R mid-foot (mild) and mild erythema/swelling of R 1st MTP joint musculo - minimal tenderness over R 1st MTP joint, minimal tenderness over R mid-foot; bunion deformity of R first toe vasc - pulses 2+ b/l Julio Wills MD Coding Level of Care Code D/C DAY MANAGEMENT >30 MINS Diagnoses Toe swelling M79.89 Ankle pain M25.579 Cellulitis of great toe, right L03.031 Toenail fungus B35.1
== END 2021-03-15 14:37 | disposition home or self-care (01) | DRG 603 ==
LOC: 3N 17:12 → ED 17:12 → SUATTDRO 03-13 00:47 → MERGE 03-13 00:47